=== PATIENT | male | born 1965 | race American Indian/Alaskan Native ===

== ENCOUNTER 2018-10-16 06:20 | Day surgery (SDC) | payer OTHER ==
--- NOTE | 2018-10-16 07:40 | Anesthesia Day of Surgery ---
Anesthesia Day of Surgery - Day of Surgery Patient Examined: Yes Patient H&P Reviewed: Yes Patient is NPO: Yes
--- NOTE | 2018-10-16 07:41 | Anesthesia Consultation ---
Anesthesia Consult and Med Hx Date of service: 10/16/18 - Airway Anesthetic Teeth Evaluation: Partials ROM Head & Neck: Adequate Mental/Hyoid Distance: Adequate Mallampati Class: Class II Intubation Access Assessment: Possibly Difficult - Pre-Operative Health Status ASA Pre-Surgery Classification: ASA3 Proposed Anesthetic Plan: MAC - Pulmonary Hx Smoking: Yes Hx Sleep Apnea: Yes - Cardiovascular System Hx Hypertension: Yes - Central Nervous System Hx Back Pain: Yes
[2018-10-16] MEDS ORDERED: NACL 0.9% 1000 ML 1,000 ML IV SCH (08:00)
[2018-10-16] MEDS ORDERED: WATER FOR IRRIG STERILE IR ONE (08:38)
[2018-10-16] MEDS ORDERED: VERSED ONE (08:46)
[2018-10-16] MEDS ORDERED: XYLOCAINE 1% 20 mL ONE (08:47)
[2018-10-16] MEDS ORDERED: DIPRIVAN 10 MG/ML IV ONE ×2 (08:47)
--- NOTE | 2018-10-16 09:14 | History and Physical Report ---
HISTORY OF PRESENT ILLNESS: This is a 53-year-old -German gentleman with an underlying history of hypertension, sleep apnea, history of shunt because of a history of hydrocephalus. He does not give any family history of any type of cancer. Denies any history of CVA or any heart issues. He is here to have a colonoscopy done as part of colon polyp screening. Otherwise, he is doing well. MEDICATIONS: He takes blood pressure medicine. ALLERGIES: Not allergic to any medicine. SOCIAL HISTORY: Admits to smoking, occasional alcohol use. PHYSICAL EXAMINATION: VITAL SIGNS: Stable. HEENT: Shows no JVD. LUNGS: Clear to auscultation. CARDIOVASCULAR: Normal. ABDOMEN: Soft. Bowel sounds present. NEUROLOGIC: He is alert and oriented. ASSESSMENT: Colon polyp screening, hypertension, history of sleep apnea, history of a shunt secondary to hydrocephalus. PLAN: To do a colonoscopy at [facility] for assessment for possible colon polyps to be done on 10/16/2018. JOB# [id number] JUVENTINO/EUSEBIO
--- NOTE | 2018-10-16 09:23 | Procedure Note ---
Date of procedure: 10/16/18 Pre-op diagnosis: Colon Polyp Screening Post-op diagnosis: other (Multiple Colon Polyps (Cecal Polyp-cold,snare excised;Ascending colon Polyps-hot,snare excised an burnt;Descending Colon Polyp-cold biopsy;Recto-sigmoid Polyp-cold Biopsy)/ No Diverticular Disease/ Mild to Moderate Internal Hemorrhoid) Procedure: Colonoscopy with Snare Polypectomy and Cold Biopsy Anesthesia: [facility] [place] Surgeon: SALLY REYES Estimated blood loss: minimal Pathology: list Specimen disposition: to lab Condition: stable Disposition: same day (Avoid aspirin and NSAID and anticoagulants for 5 days. Resume home medication and follow up in 1 to 2 weeks ([phone]).)
--- NOTE | 2018-10-16 09:49 | Operative Report ---
COLONOSCOPY A 53-year-old -[place] gentleman with an underlying history of hypertension, sleep apnea, a history of intracranial shunt for hydrocephalus. Colonoscopy was done as part of colon polyp screening. Procedure was done after getting informed consent with MAC anesthesia. Initial rectal exam was unremarkable. Instrument was passed through the rectum onto the cecum, which was identified with ileocecal valve and the appendiceal orifice. Visualization was fair to good. In the cecum, there was a 10 mm sessile polyp noted that was removed by cold snare polypectomy and retrieved. In the ascending colon, there was an 11 mm polyp that was also removed, sessile polyp removed by snare polypectomy with application of heat and retrieved. There was a small polyp next to it, which was burnt with the tip of the polypectomy snare. The remaining part of the ascending colon, the transverse colon showed normal mucosa. There was a 7-8 mm polyp in the proximal descending colon that was removed by cold biopsy and a small polyp in the rectosigmoid area that was also removed by cold biopsy. The sigmoid appeared normal. There was no diverticular disease noted throughout the colon and the rectum showed mild to moderate internal hemorrhoid on the retroverted view. There was minimal bleeding from the polypectomy sites and no complications associated with the procedure. ASSESSMENT: Colon polyp screening, multiple polyps noted. Cecal polyp removed by snare excision, ascending colon polyp removed by snare excision, and another one burnt with the tip of the polypectomy snare. Descending colon polyp removed by cold biopsy and rectosigmoid polyp, also possibly hyperplastic removed by cold biopsy. Mild to moderate internal hemorrhoids. Again, there were no complications associated with the procedure. Minimal bleeding associated with the polypectomy. The procedure was done in the GI lab with assistance of anesthesia and with the assistance of the GI lab team, which included JULIA Stewart and April cortez with the Dr. Gomez. The patient will be asked to avoid aspirin and aspirin-related products for the next few days, resume previous medication, and follow up in the office in 1-2 weeks' time. JOB# [id number] JUVENTINO/EUSEBIO
[2018-10-16 10:27] VITALS: BP 134/94
== END 2018-10-16 06:21 | disposition home or self-care (01) ==
LOC: GIO 06:20
DX: Z12.11 Encounter for screening for malignant neoplasm of colon (principal); D12.0 Benign neoplasm of cecum; D12.2 Benign neoplasm of ascending colon; D12.4 Benign neoplasm of descending colon; K64.8 Other hemorrhoids; K63.5 Polyp of colon; I10 Essential (primary) hypertension; G47.33 Obstructive sleep apnea (adult) (pediatric); G91.8 Other hydrocephalus; F17.210 Nicotine dependence, cigarettes, uncomplicated; Z98.890 Other specified postprocedural states
CPT/HCPCS: 88305; J2250; J2704; J7030